=== PATIENT | male | born 1960 | race Caucasian/White ===

== ENCOUNTER 2022-05-21 13:25 | Outpatient (CLI) | payer OTHER, SELFPAY ==
--- NOTE | 2022-05-21 | DI.RAD_ITS ---
Exam(s) XR CERVICAL SPINE COMP 4-5V EXAM: XR CERVICAL SPINE COMP 4-5V CLINICAL HISTORY: NECK PAIN WITH SYMPTOMS RADIATING TO RT THUMB,. TECHNIQUE: 2D digital imaging was performed. Six images were obtained. AP, odontoid, lateral and cheryl ateral oblique images were obtained. COMPARISON: No exams were available for comparison FINDINGS: The odontoid is intact. The lateral masses are well aligned. There is normal alignment of the cervi zahra spine. There are endplate osteophytes at C5-6. No acute fracture or subluxation is present. Ther e is disc space narrowing at C5-C6. There is mild neural foraminal narrowing bilaterally at C5-C6. D egenerative changes of the facets are seen at C3-C4. The cervical thoracic junction is well maintaine d. The prevertebral soft tissues are unremarkable. Lung apices are clear. IMPRESSION: Degenerative changes seen in the cervical spine predominantly at C5-C6. DATA REPOSITORY: RADIATION DOSE DELIVERED:
== END 2022-05-21 13:45 ==
LOC: DI 13:26
PROVIDERS: PCP Family Medicine; Visit Provider Chiropractor
DX: M54.12 Radiculopathy, cervical region (principal); M50.322 Other cervical disc degeneration at C5-C6 level; M47.22 Other spondylosis with radiculopathy, cervical region
CPT/HCPCS: 72050

== ENCOUNTER 2023-01-21 03:12 | Outpatient (CLI) | payer OTHER, SELFPAY ==
[2023-01-21 13:13] LABS: INR 1.5 (0.9-1.1); Prothrombin Time 15.2 sec (9.3-11.0)
== END 2023-01-21 03:13 | disposition home or self-care (01) ==
PROVIDERS: PCP Family Medicine; Visit Provider Family Medicine
DX: I82.401 Acute embolism and thrombosis of unspecified deep veins of right lower extremity (principal)
CPT/HCPCS: 36415; 85610

== ENCOUNTER 2023-01-21 13:00 | Outpatient (RCR) | payer OTHER, SELFPAY | END 2023-01-22 23:59 | disposition home or self-care (01) | LOC: CR 13:00 | PROVIDERS: PCP Family Medicine; Visit Provider Internal Medicine Cardiovascular Disease | DX: I25.10 Atherosclerotic heart disease of native coronary artery without angina pectoris (principal); Z95.1 Presence of aortocoronary bypass graft; Z51.89 Encounter for other specified aftercare | CPT/HCPCS: S9472 ==

== ENCOUNTER 2023-01-28 02:36 | Outpatient (CLI) | payer OTHER, SELFPAY ==
[2023-01-28 12:57] LABS: INR 2.1 (0.9-1.1); Prothrombin Time 21.1 sec (9.3-11.0)
== END 2023-01-28 02:37 | disposition home or self-care (01) ==
PROVIDERS: PCP Family Medicine; Visit Provider Family Medicine
DX: I82.401 Acute embolism and thrombosis of unspecified deep veins of right lower extremity (principal)
CPT/HCPCS: 36415; 85610

== ENCOUNTER 2023-01-28 13:40 | Outpatient (RCR) | payer OTHER, SELFPAY | END 2023-02-22 23:59 | disposition home or self-care (01) | LOC: CR 13:40 | PROVIDERS: PCP Family Medicine; Visit Provider Internal Medicine Cardiovascular Disease | DX: I25.10 Atherosclerotic heart disease of native coronary artery without angina pectoris (principal); Z95.1 Presence of aortocoronary bypass graft; Z51.89 Encounter for other specified aftercare | CPT/HCPCS: S9472 ==